=== PATIENT | female | born 1990 | race Caucasian/White ===

== ENCOUNTER 2021-08-04 08:45 | Outpatient (RCR) | payer OTHER, SELFPAY ==
[2021-07-14 13:23] VITALS: BMI 21.6
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
--- NOTE | 2021-07-17 13:10 | PC.NURSE ---
Case opened in treatment team
--- NOTE | 2021-07-19 09:18 | PC.NURSE ---
I called client and left a message regarding her absence this morning. Requested a call back.
--- NOTE | 2021-07-19 14:22 | PC.NURSE ---
I called the client to check in. She was sleeping and said she slept for most of the day because she was up the other night. She staes that she is safe and will be in tomorrow.
--- NOTE | 2021-07-20 15:24 | P.PNPSP_ITS ---
Subjective Subjective Date of Service: 07/20/21 Reason For Visit: Anxiety, Depression, Borderline Personality D/o Subjective Notes: [place] Warning Guardianship: No Medical Problems Affecting Mental Status: No Interim History: Abimbola reports that she is feeling eh today. When asked to elaborate, she stated that she is feeling better today than yesterday. She reports that she had a difficult day yesterday, and had thought about cutting herself. She stated however that she used coping skills she has learned and was able to get through the event without acting on the impulse. She reports she has not yet noticed a difference with the increased Effexor, but has had no side effects or adverse events regarding it. Medication Compliance: Yes Side effects from medications: No Attending Groups: Yes Review of Systems Acute medical concerns: No Medical Review of Systems: unchanged Mental Status Exam Mental Status Exam Narrative: Well-developed, well-nourished female, in NAD. Appropriately groomed and dressed. Sitting up, erect posture. No abnormal movements noted, except for facial / eye movement tics, which have been longstanding. Eye contact within normal limits. Fully alert and oriented x4. Speech articulate, normal rate and rhythm. was calm and cooperative during encounter. Describes mood as eh , somewhat depressed. Affect congruent with mood. Thought process and association linear, goal-directed. No evidence of hallucinations or delusional thought, and none reported. Patient denies any thoughts of suicidal ideation or homicidal ideation at this time. Does report thoughts of self-harm (cutting) yesterday, but none today. 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 Judgment and insight fair. Ambulation not observed. Diagnostics Vital Signs (24Hr): Body Mass Index 21.6 Assessment & Plan Assessment & Plan (1) Alcohol use disorder, moderate, in early remission: Status: Acute Code(s): F10.21 - Alcohol dependence, in remission Assessment and Plan: The patient reports she has abstained from alcohol use. She does report however that she has had some cravings to drink, although she has not acted on them. Continues with naltrexone, which is prescribed by her outpatient provider. She was encouraged to attend recovery support, either 12-step or other types of meetings. This was discussed, and patient was encouraged to reach out as she may need this network at some point. She stated that she would consider this. (2) Social anxiety disorder: Status: Acute Code(s): F40.10 - Social phobia, unspecified Assessment and Plan: Patient reports feeling better today than yesterday, reports she feels comfortable in groups at this time. (3) Bipolar 2 disorder: Status: Acute Code(s): F31.81 - Bipolar II disorder Assessment and Plan: Patient reports she has been taking the Effexor 187.5 mg daily since last week. Reports she has not really noticed any effect yet, but plans to continue with new does, as she believes 6 days has not been long enough to notice changes yet. She denies any thoughts of suicidal ideation, and has no plan nor intent. No safety concerns at this time. (4) ADD (attention deficit disorder): Status: Acute Code(s): F98.8 - Other specified behavioral and emotional disorders with onset usually occurring in childhood and adolescence Assessment and Plan: Denies any current concerns regarding ADD during this encounter. Assessment and Plan: 1. Continue with current medication regimen. 2. Follow-up with patient as per protocol. 3. Patient states she does not need any refills at this time. Patient educated on: diagnosis, medication risk/benefits, substance abuse and therapeutic strategies Informed Consent: understands Reason for contiued partial hosp. stay Substantial Risk for: inability to function and med/psych decompensation Certification I certify that partial hospital treatment is medically necessary due to the symptoms and problems resulting from the patient's mental illness and the failure to treat the patient at the partial hospital level of care would likely result in the patient requiring inpatient psychiatric care which could not be prevented at a less intensive level of care. Greater than 50% of the session was spent on counseling and/or coordination of care Discharge Plan Discharge Attending provider: Montez Cordova Medications: New venlafaxine [Effexor XR] 37.5 mg capsule,extended release 24hr 37.5 mg PO DAILY Qty: 7 RF: 0 No Action lamotrigine 200 mg Tablet 200 mg PO BID RF: 0 naltrexone 50 mg Tablet 50 mg PO DAILY RF: 0 clonazepam 0.5 mg Tablet 0.5 - 1 mg PO DAILY PRN (Reason: Anxiety) RF: 0 venlafaxine [Effexor XR] 150 mg Capsule,Extended Release 24hr 150 mg PO DAILY RF: 0 gabapentin 300 mg Capsule 300 mg PO TID RF: 0 lithium carbonate 300 mg Tablet 300 mg PO BID RF: 0 Telehealth Telehealth Location of provider rendering services: practice address Location of patient: address on file Patient Identification confirmed using: Name, : Yes Telehealth method: video Patient verbally consented to treatment: Yes Patient verbally consented to billing insurance company: Yes Patient informed of any privacy concerns related to visit: Yes Time spent with patient (mins): 15
--- NOTE | 2021-07-24 09:41 | PC.NURSE ---
Patient unable to come to the program this morning as she needed to bring her cat to the vet. Plans on attending on Saturday. Team is aware.
--- NOTE | 2021-07-25 12:18 | P.PNPSP_ITS ---
Subjective Subjective Date of Service: 07/25/21 Reason For Visit: Anxiety, Depression, Borderline Personality D/o Interim History: I evaluated the patient this evening and upon inquiry she reports ?I havent really noticed anything different? on increased effexor dose, ?I?m still just blah.? Says she has low energy. Sleep is ?fine,? 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 She has recently been having urges to drink despite naltrexone use. Discloses ?i cheated and had a beer? the other day, but notes this is a ?vast improvement? from previous drinking behavior. Overall, says ?I havent had many thoughts of self harm.? For anxiety, she reports she has been having ?a lot of social anxiety,? used to drink to alleviate this, now that she is not drinking she says she is more avoidant and isolative. Has been ?trying to push myself a little,? i.e. says using the phone ?is the most terrifying thing,? but able to call her internet provider with her brother present and ran some errands for her dad at the store. Reports her self care is poor, not showering x 4-5 days, low appetite, doesnt get up, has low motivation, feels ?overwhelmed.? Hasnt had lithium level done despite dose being recently increased from 300 mg QD to 300 mg BID x 1-1.5 months. Says she is ?very rarely? using klonopin, discussed that this is probably a good decision for her due to her co-occurring alcohol use disorder. Says she is not sure if Gabapentin has been helping all that much. Overall, likes her mood stabilizing meds, saying her mood has been ?very stable? and that ?if only i could turn the anxiety into usable energy.? Denies SI/SIB upon inquiry. Says she feels safe. Medication Compliance: Yes Side effects from medications: No Attending Groups: Yes Review of Systems Acute medical concerns: No Medical Review of Systems: unchanged Mental Status Exam Mental Status Exam Narrative: Well-developed, well-nourished female, in NAD.? Appropriately groomed and dressed.? Sitting up, erect posture.? No abnormal movements noted, except for facial / eye movement tics, which have been longstanding.? Eye contact within normal limits.? Fully alert and oriented x4.? Speech articulate, normal rate and rhythm.? was calm and cooperative during encounter.? Describes mood as blah , somewhat depressed.? Affect congruent with mood.? Thought process and association linear, goal-directed.? No evidence of hallucinations or delusional thought, and none reported.? Patient denies any thoughts of suicidal ideation or homicidal ideation at this time.? Does report thoughts of self-harm (cutting) yesterday, but none today.? 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 Judgment and insight fair.? Ambulation not observed. Diagnostics Vital Signs (24Hr): Body Mass Index 21.6 Assessment & Plan Assessment & Plan (1) Alcohol use disorder, moderate, in early remission: Status: Acute Code(s): F10.21 - Alcohol dependence, in remission Assessment and Plan: The patient reports she has abstained from alcohol use.? Continues to have some cravings to drink, recently had a beer.?Continues with naltrexone, which is prescribed by her outpatient provider. She?was? encouraged to attend recovery support, either 12-step or other types of meetings.? This was discussed, and patient was encouraged to reach out as she may need this network at some point.? She stated that she would consider this but not today. (2) ADD (attention deficit disorder): Status: Acute Code(s): F98.8 - Other specified behavioral and emotional disorders with onset usually occurring in childhood and adolescence Assessment and Plan: Denies any current concerns regarding ADD during this encounter. (3) Social anxiety disorder: Status: Acute Code(s): F40.10 - Social phobia, unspecified Assessment and Plan: Continues to endorse sx of social anxiety but has been trying to push herself to go to grocery store and make phone calls. Will start clonidine 0.1 mg BID PRN for anxiety and hyperarousal, as she says her anxiety is holding her back and impairing her functioning, contributes to low motivation, may also help with urges for drinking. Reviewed risks and benefits, including monitoring for dizziness. (4) Bipolar 2 disorder: Status: Acute Code(s): F31.81 - Bipolar II disorder Assessment and Plan: Continues on Effexor 187.5 mg daily since last week.?Still has not really noticed any effect yet, but does not want changes, initially this medication was helpful. She denies any thoughts of suicidal ideation, and has no plan nor intent.? No safety concerns at this time. Assessment and Plan: 1. Continue with current medication regimen. 2. Follow-up with patient as per protocol. 3. Patient states she does not need any refills at this time. Patient educated on: diagnosis, medication risk/benefits, substance abuse and therapeutic strategies Patient educated on: medication risk/benefits, substance abuse and therapeutic strategies Certification I certify that partial hospital treatment is medically necessary due to the symptoms and problems resulting from the patient's mental illness and the failure to treat the patient at the partial hospital level of care would likely result in the patient requiring inpatient psychiatric care which could not be prevented at a less intensive level of care. Greater than 50% of the session was spent on counseling and/or coordination of care Discharge Plan Discharge Attending provider: Montez Cordova Medications: New venlafaxine [Effexor XR] 37.5 mg capsule,extended release 24hr 37.5 mg PO DAILY Qty: 7 RF: 0 clonidine HCl 0.1 mg tablet 0.1 mg PO BID PRN (Reason: anxiety) Qty: 14 RF: 0 No Action lamotrigine 200 mg Tablet 200 mg PO BID RF: 0 naltrexone 50 mg Tablet 50 mg PO DAILY RF: 0 clonazepam 0.5 mg Tablet 0.5 - 1 mg PO DAILY PRN (Reason: Anxiety) RF: 0 venlafaxine [Effexor XR] 150 mg Capsule,Extended Release 24hr 150 mg PO DAILY RF: 0 gabapentin 300 mg Capsule 300 mg PO TID RF: 0 lithium carbonate 300 mg Tablet 300 mg PO BID RF: 0
--- NOTE | 2021-07-25 13:39 | PC.NURSE ---
Patient requesting help looking for a PCP as patient reports that her old PCP left the practice she was going to and she stated she does not have a PCP as a result. However, patient does have a new PCP that was reassigned to her when her previous PCP had left. Let patient know her new PCP is Marylin Hastings at [facility] in [place] at [address] [place] [address]. #[phone].
--- NOTE | 2021-07-27 09:57 | PC.NURSE ---
Spoke to Abimbola this morning who is planning on completing lab work today after group.
--- NOTE | 2021-07-27 12:43 | P.PNPSP_ITS ---
Subjective Subjective Date of Service: 07/27/21 Reason For Visit: Anxiety, Depression, Borderline Personality D/o Guardianship: No Medical Problems Affecting Mental Status: No Interim History: Abimbola reports feeling okay today. She reports she has picked up a new prescription for clonidine yesterday, but has not started yet. Also has sent short-term disability paperwork from insurance [employer]. She was held a.m. lithium dose, as she is going in for lithium level today. Has not yet attended any 12-step or other type of recovery support group, reports she is hesitant to do so. Medication Compliance: Yes Side effects from medications: No Attending Groups: Yes Review of Systems Acute medical concerns: No Medical Review of Systems: unchanged Mental Status Exam Mental Status Exam Narrative: Well-developed, well-nourished female, in NAD. Appropriately groomed. Eye contact within normal limits. Alert and oriented x4. No involuntary movements noted, except for longstanding facial tic. [place] in behavior were common cooperative. Speech was fluent and unimpaired. Mood and affect slightly anxious. In thought process and associations were linear, goal directed. Thought content was normal. No evidence of delusional thoughts or hallucinations reported or noted. Patient denies SI, HI at this time. Judgment and insight appear fair. Reliability appears good. Ambulation not observed. Diagnostics Vital Signs (24Hr): Body Mass Index 21.6 Assessment & Plan Assessment & Plan (1) Bipolar 2 disorder: Status: Acute Code(s): F31.81 - Bipolar II disorder Assessment and Plan: The patient planning to go to lab today for lithium level. (2) Alcohol use disorder, moderate, in early remission: Status: Acute Code(s): F10.21 - Alcohol dependence, in remission Assessment and Plan: Patient reports she has not yet attended a 12 step or other type of recovery support program. Patient will consider, was encouraged to do so. Discussed option of online meetings, as patient reports she gets anxious during in-person meetings. Patient going for HOPKINS while at lab today. (3) Social anxiety disorder: Status: Acute Code(s): F40.10 - Social phobia, unspecified Assessment and Plan: Patient was prescribed clonidine b.i.d. several days ago. Reports that she just picked it up yesterday, has not taken it yet. Patient was encouraged to try medication. Medication education was provided, risks discussed, benefits, side effects, and alternatives. (4) ADD (attention deficit disorder): Status: Acute Code(s): F98.8 - Other specified behavioral and emotional disorders with onset usually occurring in childhood and adolescence Assessment and Plan: Patient stable regarding ADD. Assessment and Plan: 1. Patient going to lab today for HOPKINS, lithium level. 2. Patient plans to try clonidine dose tonight. 3. Patient encouraged to find recovery support group surrounding alcohol use. 4. Discussed STD paperwork for work, this technical writer and editor will complete. 5. Follow-up as per protocol. Certification I certify that partial hospital treatment is medically necessary due to the symptoms and problems resulting from the patient's mental illness and the failure to treat the patient at the partial hospital level of care would likely result in the patient requiring inpatient psychiatric care which could not be prevented at a less intensive level of care. Greater than 50% of the session was spent on counseling and/or coordination of care Discharge Plan Discharge Attending provider: Montez Cordova Medications: New venlafaxine [Effexor XR] 37.5 mg capsule,extended release 24hr 37.5 mg PO DAILY Qty: 7 RF: 0 clonidine HCl 0.1 mg tablet 0.1 mg PO BID PRN (Reason: anxiety) Qty: 14 RF: 0 No Action lamotrigine 200 mg Tablet 200 mg PO BID RF: 0 naltrexone 50 mg Tablet 50 mg PO DAILY RF: 0 clonazepam 0.5 mg Tablet 0.5 - 1 mg PO DAILY PRN (Reason: Anxiety) RF: 0 venlafaxine [Effexor XR] 150 mg Capsule,Extended Release 24hr 150 mg PO DAILY RF: 0 gabapentin 300 mg Capsule 300 mg PO TID RF: 0 lithium carbonate 300 mg Tablet 300 mg PO BID RF: 0 Telehealth Telehealth Location of provider rendering services: practice address Location of patient: address on file Patient Identification confirmed using: Name, : Yes Telehealth method: video Patient verbally consented to treatment: Yes Patient verbally consented to billing insurance company: Yes Patient informed of any privacy concerns related to visit: Yes Time spent with patient (mins): 15
--- NOTE | 2021-07-27 15:46 | PM.EVENT ---
Event Note Date of Service: 07/27/21 Event Note: Short-term disability paperwork completed and faxed to insurance company.
--- NOTE | 2021-08-01 11:36 | P.PNPSP_ITS ---
Documented by User: Radha Gregory NP 08/04/21 12:04 Subjective Subjective Date of Service: 08/01/21 Reason For Visit: Anxiety, Depression, Borderline Personality D/o Interim History: I evaluated the pt this morning and upon interview she reports she didnt get the results of her lithium level yet, waiting for those results. Says she tried clonidine, didnt really notice much difference in her anxiety, but also says ?I didnt have a ton of anxiety over the weekend,? ?having a little today.? She hasnt had drinking urges in the last several days, ?that?s an improvement.? Reports she feels ?pretty good overall,? ?slightly depressed.? Denies SI/SIB, feels safe. Has been more behaviorally active, visiting a lot of friends, trying to work on social connections and interacting with her support system. Went to PT this morning. Still doing some errands for her dad. Still struggling with self care, ?trying to do a little better with showering.? Still not using klonopin daily, says its too sedating. Still unsure if gabapentin is helping, has been on it ?for so long now.?? Medication Compliance: Yes Side effects from medications: No Attending Groups: Yes Review of Systems Acute medical concerns: No Medical Review of Systems: unchanged Mental Status Exam Mental Status Exam Narrative: Well-developed, well-nourished female, in NAD.? Appropriately groomed.? Eye contact within normal limits.? Alert and oriented x4.? No involuntary movements noted, except for longstanding facial tic.? [place] in behavior were common cooperative.? Speech was fluent and unimpaired.? Mood and affect slightly anxious.? In thought process and associations were linear, goal directed.? Thought content was normal.? No evidence of delusional thoughts or hallucinations reported or noted.? Patient denies SI, HI at this time.? Judgment and insight appear fair.? Reliability appears good.? Ambulation not observed. Diagnostics Vital Signs (24Hr): Body Mass Index 21.6 Assessment & Plan Assessment & Plan (1) Alcohol use disorder, moderate, in early remission: Status: Acute Code(s): F10.21 - Alcohol dependence, in remission (2) Bipolar 2 disorder: Status: Acute Code(s): F31.81 - Bipolar II disorder (3) Social anxiety disorder: Status: Acute Code(s): F40.10 - Social phobia, unspecified (4) ADD (attention deficit disorder): Status: Acute Code(s): F98.8 - Other specified behavioral and emotional disorders with onset usually occurring in childhood and adolescence Assessment and Plan: Plan: Continue to monitor clonidine for benefit for social anxiety, hyperarousal. Will obtain lithium level. No other changes to med plan. Certification I certify that partial hospital treatment is medically necessary due to the symptoms and problems resulting from the patient's mental illness and the failure to treat the patient at the partial hospital level of care would likely result in the patient requiring inpatient psychiatric care which could not be prevented at a less intensive level of care. Greater than 50% of the session was spent on counseling and/or coordination of care Discharge Plan Discharge Attending provider: Montez Cordova Additional Instructions: therapist Odalis Marti 08/11/21 Jose Angel Garcia med prescriber 08/11/21 Medications: New venlafaxine [Effexor XR] 37.5 mg capsule,extended release 24hr 37.5 mg PO DAILY Qty: 7 RF: 0 clonidine HCl 0.1 mg tablet 0.1 mg PO BID PRN (Reason: anxiety) Qty: 14 RF: 0 No Action lamotrigine 200 mg Tablet 200 mg PO BID RF: 0 naltrexone 50 mg Tablet 50 mg PO DAILY RF: 0 clonazepam 0.5 mg Tablet 0.5 - 1 mg PO DAILY PRN (Reason: Anxiety) RF: 0 venlafaxine [Effexor XR] 150 mg Capsule,Extended Release 24hr 150 mg PO DAILY RF: 0 gabapentin 300 mg Capsule 300 mg PO TID RF: 0 lithium carbonate 300 mg Tablet 300 mg PO BID RF: 0 Stand Alone Forms: Patient Portal Discharge page Documented by User: Michael Moreno MD 08/11/21 10:50 Subjective Subjective Date of Service: 08/11/21 Reason For Visit: Anxiety, Depression, Borderline Personality D/o Assessment & Plan Assessment & Plan (1) Alcohol use disorder, moderate, in early remission: Status: Acute Code(s): F10.21 - Alcohol dependence, in remission (2) Bipolar 2 disorder: Status: Acute Code(s): F31.81 - Bipolar II disorder (3) Social anxiety disorder: Status: Acute Code(s): F40.10 - Social phobia, unspecified (4) ADD (attention deficit disorder): Status: Acute Code(s): F98.8 - Other specified behavioral and emotional disorders with onset usually occurring in childhood and adolescence Discharge Plan Discharge Attending provider: Montez Cordova Additional Instructions: therapist Odalis Marti 08/11/21 Jose Angel altamirano prescriber 08/11/21 Medications: New venlafaxine [Effexor XR] 37.5 mg capsule,extended release 24hr 37.5 mg PO DAILY Qty: 7 RF: 0 clonidine HCl 0.1 mg tablet 0.1 mg PO BID PRN (Reason: anxiety) Qty: 14 RF: 0 No Action lamotrigine 200 mg Tablet 200 mg PO BID RF: 0 naltrexone 50 mg Tablet 50 mg PO DAILY RF: 0 clonazepam 0.5 mg Tablet 0.5 - 1 mg PO DAILY PRN (Reason: Anxiety) RF: 0 venlafaxine [Effexor XR] 150 mg Capsule,Extended Release 24hr 150 mg PO DAILY RF: 0 gabapentin 300 mg Capsule 300 mg PO TID RF: 0 lithium carbonate 300 mg Tablet 300 mg PO BID RF: 0 Stand Alone Forms: Patient Portal Discharge page
== END 2021-08-08 07:11 | disposition home or self-care (01) ==
LOC: HO.PHPA 08:45
PROVIDERS: Visit Provider Psychiatry & Neurology Psychiatry
DX: F31.81 Bipolar II disorder (principal); F40.10 Social phobia, unspecified; F98.8 Other specified behavioral and emotional disorders with onset usually occurring in childhood and adolescence; F10.21 Alcohol dependence, in remission; F95.2 Tourette's disorder; Z79.899 Other long term (current) drug therapy; Z91.5 Personal history of self-harm
CPT/HCPCS: 90791; 90853

== ENCOUNTER 2024-10-14 12:33 | Emergency (ER) | payer OTHER, SELFPAY ==
--- NOTE | ~2024-10-14 | XR_ITS ---
EXAMINATION: XR CHEST 4:29 PM CLINICAL INFORMATION: cp COMPARISON: None available. TECHNIQUE: Frontal view of the chest was obtained. FINDINGS: No significant abnormality is noted involving the heart, lungs, mediastinum, bony thorax or soft tissues. XR/XR chest 1V IMPRESSION: No acute disease Electronically signed by: Nikolas Richard MD 10/14/2024 04:41 PM [facility]
--- NOTE | 2024-10-14 12:44 | ECG_ITS ---
Test Reason : chest pain Blood Pressure : / mmHG Vent. Rate : 082 BPM Atrial Rate : 082 BPM P-R Int : 120 ms QRS Dur : 078 ms QT Int : 404 ms P-R-T Axes : 041 071 057 degrees QTc Int : 472 ms Normal sinus rhythm with sinus arrhythmia Normal ECG No previous ECGs available Referred By: Generic ED Physician Electronically Signed By:JEFFERSON CARREON
[2024-10-14 12:53] VITALS: BP 125/89; BP 135/83; PULSE 81; RESP 20; TEMP 37.2; O2SAT 98; BMI 24.4
--- NOTE | 2024-10-14 14:00 | ED_ITS ---
HPI - General Adult General Chief complaint: General Medical Stated complaint: ABD/CP/SOB,?WITHDRAWAL PER EMS Time Seen by Provider: 10/14/24 12:50 History of Present Illness HPI narrative: patient is a 34-year-old female with a history of cocaine use. Last used cocaine 2 days ago. Currently lives in a half-way. Presented today with having chest pain starting around noon time. The pain is dull mid chest not associated with shortness of breath or diaphoresis. It comes and goes but there is always a constant component. Lasts a few minutes. No diaphoresis. No history of leg pain. No history of blood clots. No history diabetes, hypertension, high cholesterol, mi. no family history of coronary artery disease. Positive history of smoking. Patient states she used cocaine on a regular basis prior. No other recreational drugs. Related Data Home Medications ?Medication ?Instructions ?Recorded ?Confirmed clonazepam 0.5 mg tablet 0.5 - 1 mg PO DAILY PRN Anxiety 07/14/21 07/14/21 gabapentin 300 mg capsule 300 mg PO TID 07/14/21 07/14/21 lamotrigine 200 mg tablet 200 mg PO BID 07/14/21 07/14/21 lithium carbonate 300 mg tablet 300 mg PO BID 07/14/21 07/14/21 naltrexone 50 mg tablet 50 mg PO DAILY 07/14/21 07/14/21 venlafaxine 150 mg 150 mg PO DAILY 07/14/21 07/14/21 capsule,extended release 24 hr (Effexor XR) Previous Rx's ?Medication ?Instructions ?Recorded venlafaxine 37.5 mg 37.5 mg PO DAILY #7 caps 07/14/21 capsule,extended release 24 hr (Effexor XR) clonidine HCl 0.1 mg tablet 0.1 mg PO BID PRN anxiety #14 tabs 07/25/21 Allergies Allergy/AdvReac Type Severity Reaction Status Date / Time Unable to Assess Allergy Verified 10/14/24 13:01 Review of Systems 2 Review of Systems: Positive chest pain Yes all other systems are reviewed and are negative PMFSH Past Medical History Attestation statement: The following information was validated with the patient. Medical History Nausea Tourette syndrome Surgical History History of cholecystectomy Social History Social History Household Members: Family Household Members Other:: Father: Vincent England Patient Tobacco Use Status: Current everyday Tobacco user Tobacco use type: Cigarette Years Smoked: 2 years Advance Directives: No Advance Directives Information Provided: Yes Physical Exam ED Vital Signs: Vital Signs - 24 hr 10/14/24 12:53 10/14/24 14:56 Temperature 98.9 F 98.6 F Pulse Rate 81 73 Respiratory Rate 20 14 Blood Pressure 125/89 99/68 Pulse Oximetry 98 98 Oxygen Delivery Method Room Air Room Air BMI result Body Mass Index 24.4 Appearance: Alert. Oriented X3. No acute distress. Eyes: Pupils equal, round and reactive to light. ENT: Pharynx normal. Neck: Normal inspection. Neck supple. No lymph nodes noted. No crepitus CVS: Normal heart rate and rhythm. Pulses normal. Normal S1 and S2 Respiratory: No respiratory distress. Breath sounds normal. No Wheezing. No rales Abdomen: Soft and nontender. No rigidity. No distention. good BS x4 Skin: Skin warm and dry. Normal skin color. Normal skin turgor. Extremities: No lower extremity edema. Neurovascular intact to all extremities. No Lacerations. No Rash Neuro: Oriented X 3. No motor deficit. No sensory deficit. Moving all extermities. No slurred speech Medical Decision Making Medical Decision Making [facility] Narrative: My interpretation of patient's EKG showed a sinus rhythm heart rate is 80 [place] QRS QTC within normal limits there is no acute ST segment elevation noted. Patient's chest pain atypical for ACS. She is 34 years old. Heart enzymes negative. Other than smoking no significant wrist. Heart score is less than 3. test was negative. Urine showed no signs of infection. U tox was positive for cocaine and marijuana only. My interpretation patient's chest x-ray was grossly negative. No pneumonia no pneumothorax. Differential Diagnosis Differential Diagnoses: The differential diagnosis associated with the presentation includes ACS, atypical chest pain, pneumothorax, Admission/Observation Consideration of admission/observation: Escalation of care including admission/observation considered Consult Healthcare Provider Management of the patient was discussed with: Education Dean ( care team) Lab Data [facility] Lab Attestation statement: I reviewed the patient's lab results. 10/14/24 14:38 10/14/24 14:38 Labs: Lab Results 10/14/24 10/14/24 Range/Units 14:38 16:10 WBC 16.0 H (4.8-10.8) X10*3/uL RBC 4.38 (4.20-5.50) X10*6/uL Hgb 13.5 (12.0-16.0) g/dl Hct 37.3 (37.0-47.0) % MCV 85.2 (80.0-98.0) fL MCH 30.8 (27.0-33.0) pg MCHC 36.2 H (31.0-35.0) g/dl RDW 12.1 (11.0-16.0) % Plt Count 301 (160-400) X10*3/uL MPV 10.1 (9.4-12.3) fL Immature Gran % (Auto) 0.3 (0.0-0.4) % Neut % (Auto) 83.5 H (45-73) % Lymph % (Auto) 11.7 L (20-40) % [place] % (Auto) 4.1 (2-11) % Eos % (Auto) 0.1 (0-4) % Baso % (Auto) 0.3 (0-2) % Lymph # (Auto) 1.9 (1.2-4.9) X10*3/uL [place] # (Auto) 0.7 (0.1-1.2) X10*3/uL Eos # (Auto) 0.0 (0.0-0.4) X10*3/uL Baso # (Auto) 0.1 (0.0-0.2) X10*3/uL Abs Immat Gran (auto) 0.05 H (0.00-0.03) X10*3/uL Absolute Neuts (auto) 13.4 H (2.0-8.3) x10*3/uL Absolute Nucleated RBC 0.000 (0.0-0.012) X10*3/uL Nucleated RBC % (auto) 0.0 (0.0-0.2) /100WBC Sodium 136 (135-145) mmol/L Potassium 3.4 (3.3-5.1) mmol/L Chloride 107 (96-108) mmol/L Carbon Dioxide 19 L (22-29) mmol/L Anion Gap 13 (12-20) BUN 8 L (9-16) mg/dL Creatinine 0.79 (0.5-1.4) mg/dL Estim Creat Clear Calc 79.1 Estimated GFR > 60 Random Glucose 103 (60-115) mg/dL Calcium 9.4 (8.4-10.2) mg/dL Troponin I High Sens < 2.7 < 2.7 (<3.5-17.0) ng/L Beta HCG, Quant < 2 mIU/mL Urine Color Yellow Urine Appearance Clear Urine pH 5.5 (5.0-9.0) Ur Specific Chromo <= 1.005 (1.005-1.025) Urine Protein Negative (Neg-Trace) mg/dL Urine Glucose (UA) Negative (Negative) mg/dL Urine Ketones 15 (Negative) mg/dL Urine Blood Small (1+) H (Negative) Urine Nitrite Negative (Negative) Ur Leukocyte Esterase Trace H (Negative) Urine RBC 0-2 (0-2) /HPF Urine WBC 0-5 (0-5) /HPF Ur Squamous Epith Cells 0-2 (0-2) /HPF Urine Bacteria None Seen (None Seen) Hyaline Casts 0-2 (0-2) /LPF Urine Opiates Screen Not Detected (Not Detect) Ur Buprenorphine Scrn Not Detected (Not Detect) ng/mL Ur Oxycodone Screen Not Detected (Not Detect) ng/mL Urine Methadone Screen Not Detected (Not Detect) ng/mL Urine Fentanyl Screen Not Detected (Not Detect) Ur Barbiturates Screen Not Detected (Not Detect) Ur Phencyclidine Scrn Not Detected (Not Detect) Ur Amphetamines Screen Not Detected (Not Detect) U Benzodiazepines Scrn Not Detected (Not Detect) Urine Cocaine Screen POSITIVE H (Not Detect) U Marijuana (THC) Screen POSITIVE H (Not Detect) Independent Interpretation I performed an independent interpretation of an: EKG ( my interpretation of patient's EKG showed a sinus rhythm heart rate is 80 [place] QRS QTC within normal limits is no acute ST segment elevation) External Record Review External record reviewed: Office record ( previous psychiatry note reviewed) Chronic Conditions history of polysubstance abuse Social Determinants Patient?s care significantly limited by Social Determinants of Health including: Alcoholism and drug addiction in family Discharge Plan Discharge Clinical Impression: Chest pain, Cocaine abuse Patient Disposition: Home, Self-Care Instructions: Chest Pain (ED), Cocaine Abuse (ED) Prescriptions: No Action lamotrigine 200 mg Tablet 200 mg PO BID naltrexone 50 mg Tablet 50 mg PO DAILY clonazepam 0.5 mg Tablet 0.5 - 1 mg PO DAILY PRN (Reason: Anxiety) Rx Instructions: take 1-2 tabs daily prn for anxiety venlafaxine [Effexor XR] 150 mg Capsule,Extended Release 24hr 150 mg PO DAILY gabapentin 300 mg Capsule 300 mg PO TID lithium carbonate 300 mg Tablet 300 mg PO BID venlafaxine [Effexor XR] 37.5 mg capsule,extended release 24hr 37.5 mg PO DAILY Qty: 7 0RF Rx Instructions: take in addition to effexor XR 150mg dose, for total daily dose of 187.50 mg daily. clonidine HCl 0.1 mg tablet 0.1 mg PO BID PRN (Reason: anxiety) Qty: 14 0RF Referrals: Olaf Munoz MD [Physician] - 10/19/24 Michelle Ritter CNP [Nurse Practitioner] - Print Language: [place]
[2024-10-14 14:43] LABS: MANUAL DIFF FLAG NO
[2024-10-14 14:44] LABS: Basophils Absolute Auto 0.1 X10*3/uL (0.0-0.2); Basophils Percent Auto 0.3 % (0-2); Eosinophils Percent Auto 0.1 % (0-4); Hematocrit 37.3 % (37.0-47.0); Hemoglobin 13.5 g/dl (12.0-16.0); Imm Gran Abs Auto 0.05 X10*3/uL (0.00-0.03); Imm Gran Pct Auto 0.3 % (0.0-0.4); Lymphocytes Absolute Auto 1.9 X10*3/uL (1.2-4.9); Lymphocytes Percent Auto 11.7 % (20-40); Mean Corpuscular HGB Conc 36.2 g/dl (31.0-35.0); Mean Corpuscular Hemoglobin 30.8 pg (27.0-33.0); Mean Corpuscular Volume 85.2 fL (80.0-98.0); Mean Platelet Volume 10.1 fL (9.4-12.3); Monocytes Absolute Auto 0.7 X10*3/uL (0.1-1.2); Monocytes Percent Auto 4.1 % (2-11); Neutrophils Absolute Auto 13.4 x10*3/uL (2.0-8.3); Neutrophils Percent Auto 83.5 % (45-73); Platelet Count 301 X10*3/uL (160-400); Red Blood Count 4.38 X10*6/uL (4.20-5.50); Red Cell Distribution Width 12.1 % (11.0-16.0)
[2024-10-14 14:45] LABS: Appearance Urine Clear; Color Urine Yellow; Glucose Urine UA Negative (Negative); Leukocyte Esterase Urine Trace (Negative); Nitrite Urine Negative (Negative); PH 5.5 (5.0-9.0); Specific Gravity - Urine <= 1.005 (1.005-1.025); UMIC TRIGGER UACC YES; Urine Blood Small (1+) (Negative); Urine Ketones 15 mg/dL (Negative); Urine Protein Negative (Neg-Trace)
[2024-10-14 14:55] LABS: Amphetamine Screen Urine Not Detected (Not Detect); Barbiturates, Urine Not Detected (Not Detect); Benzodiazepines Screen Urine Not Detected (Not Detect); Buprenorphine Scr Not Detected (Not Detect); Cannabinoid Screen Urine POSITIVE (Not Detect); Cocaine Screen Urine POSITIVE (Not Detect); Fentanyl, urine Not Detected (Not Detect); Methadone Screen, Urine Not Detected (Not Detect); Opiate Screen Urine Not Detected (Not Detect); Oxycodone Screen Urine Not Detected (Not Detect); Phencyclidine Screen Urine Not Detected (Not Detect)
[2024-10-14 14:56] VITALS: BP 99/68; PULSE 73; RESP 14; TEMP 37; O2SAT 98
[2024-10-14 14:56] LABS: Bacteria Urine None Seen (None Seen); Hyaline Casts Urine 0-2 /LPF (0-2); RBC Urine 0-2 /HPF (0-2); Squamous Epithelial Cell Urine 0-2 /HPF (0-2); WBC Urine 0-5 /HPF (0-5)
[2024-10-14 14:57] LABS: Anion Gap 13 (12-20); Blood Urea Nitrogen 8 mg/dL (9-16); Calcium 9.4 mg/dL (8.4-10.2); Carbon Dioxide 19 mmol/L (22-29); Chloride 107 mmol/L (96-108); Creatinine Clr Calc Pharmacy 79.1; Estimated Glomerular Filt Rate > 60; Glucose Random 103 mg/dL (60-115); Potassium 3.4 mmol/L (3.3-5.1); Sodium 136 mmol/L (135-145)
[2024-10-14 15:16] LABS: HCG Quantitative < 2 mIU/mL; Troponin-I High Sensitivity < 2.7 ng/L (<3.5-17.0)
[2024-10-14 16:39] LABS: Troponin-I High Sensitivity < 2.7 ng/L (<3.5-17.0)
[2024-10-14] MEDS: Naloxone HCl Nasal TAKE HOME 4 MG SPRAY 8 MG NOSTRILALT (17:09)
[2024-10-14 17:50] VITALS: BP 99/68; PULSE 73; RESP 14; TEMP 37; O2SAT 98
== END 2024-10-14 18:00 | disposition home or self-care (01) ==
PROVIDERS: Emergency Provider Emergency Medicine Emergency Medical Services
DX: R07.89 Other chest pain (principal); R06.02 Shortness of breath; I49.8 Other specified cardiac arrhythmias; F14.10 Cocaine abuse, uncomplicated; Z51.81 Encounter for therapeutic drug level monitoring; Z79.899 Other long term (current) drug therapy
CPT/HCPCS: 36415; 71045; 80048; 80307; 81001; 84484; 84702; 85025; 93005; 99284; S9485

== ENCOUNTER → 2024-10-14 12:44 | Outpatient (BNV) | payer OTHER, SELFPAY | PROVIDERS: Emergency Provider Emergency Medicine Emergency Medical Services; Visit Provider Internal Medicine | DX: R07.89 Other chest pain (principal); I49.8 Other specified cardiac arrhythmias | CPT/HCPCS: 93010 ==